=== PATIENT | male | born 1985 | race Caucasian/White ===

== ENCOUNTER → 2017-03-06 | Outpatient (CLI) | payer OTHER ==
[~2017-03-06] MED LIST: MULT-506 PO; OPTIRAY 320 IV PRN
--- NOTE | 2017-03-06 09:22 | DIAGNOSTIC IMAGING REPORT ---
CT ANGIO ABD/PELVIS COMBO CT DOSE: 652.62 mGy.cm CLINICAL HISTORY: Renal artery dissection TECHNIQUE: Images were obtained before and after the administration of contrast. Angiographic images were obtained during intravenous administration 120 cc of Optiray 320. MIP imaging was performed. A dose lowering technique was utilized adhering to the principles of ALARA. COMPARISON STUDY: 12/15/2015 FINDINGS: Visualized portions of the lung bases are unremarkable. No hepatic masses are visualized on this arterial phase study. No gallbladder abnormalities are visualized. No adrenal masses are visualized. No pancreatic masses are visualized. There is a nonspecific 7 mm hypodensity within the spleen. This remain similar to a prior November 2014 study. No renal masses are visualized. There is left renal cortical scarring. There is no evidence of bowel obstruction. There is no evidence of free air. There is colonic diverticulosis. No acute inflammatory changes are visualized. There are no abnormal pelvic masses. There is no free air. There is no free fluid. There is a small fat-containing umbilical hernia. There is no evidence of abdominal aortic aneurysm. There is no evidence of iliac artery aneurysm or stenosis. There is no evidence of celiac artery stenosis or dissection. The right renal artery appears normal. 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 There is a probable small associated intimal flap which is less apparent than on the preceding study. There is no evidence of abdominal aortic aneurysm. There is no evidence of iliac artery aneurysm or dissection. IMPRESSION: 1. 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 This appears similar in size to the prior study. The associated intimal flap is somewhat less apparent than on the most recent examination. 2. 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 No additional arterial abnormalities identified Electronically signed by: Erasmo Alcaraz M.D. 03/06/2017 9:21 AM Dictated Date/Time: 03/06/2017 9:07 AM
== END | disposition home or self-care (01) ==
LOC: C.CTS 08:43
PROVIDERS: ATTEND Physician Assistant
DX: I72.2 Aneurysm of renal artery (principal)

== ENCOUNTER → 2017-03-11 | Outpatient (CLI) | payer OTHER ==
[~2017-03-11] MED LIST changes: -OPTIRAY 320 IV PRN
--- NOTE | 2017-03-11 14:29 | DIAGNOSTIC IMAGING REPORT ---
LEFT FOURTH FINGER 3 VIEWS HISTORY: LEFT 4TH FINGER INJURY COMPARISON: None. FINDINGS: There is no fracture or dislocation. Mild soft tissue swelling at the PIP joint. No radiopaque foreign bodies. IMPRESSION: No fracture or dislocation within the left fourth finger. Electronically signed by: Roc Bullock M.D. 03/11/2017 2:27 PM Dictated Date/Time: 03/11/2017 2:26 PM
== END | disposition home or self-care (01) ==
LOC: C.RDSM 11:18
PROVIDERS: ATTEND Internal Medicine
DX: M79.645 Pain in left finger(s) (principal)